=== PATIENT | female | born 1960 | race African-American/Black ===

== ENCOUNTER 2025-03-02 16:34 | Inpatient (IN) | payer OTHER ==
[~2025-03-02] VITALS: Ht 167.6 cm; Wt 74.4 kg
[2025-03-02 17:19] LABS: *BILIRUBIN,URIN NEGATIVE (NEGATIVE); *BLOOD, URINE NEGATIVE (NEGATIVE); *CLARITY,URINE CLEAR (CLEAR); *COLOR,URINE YELLOW (YELLOW); *KETONES,URINE NEGATIVE (NEGATIVE); *PROTEIN,URINE NEGATIVE (NEGATIVE); *UROBILINOGEN,URINE 0.2 E.U./dl (NORMAL); LEUKOCYTE ESTERASE ,URINE NEGATIVE (NEGATIVE); NITRITE, URINE NEGATIVE (NEGATIVE); PH,URINE 5.5 (5.0-8.0)
[2025-03-02 17:20] LABS: HEMOGLOBIN 11.4 g/dL (10.9-14.3); MEAN CORPUSCULAR HEMOGLOBIN 28.1 uug (24.7-32.8); MEAN CORPUSCULAR HGB CONC 33 g/dL (32.3-35.6)
[2025-03-02 17:26] LABS: *AMPHETAMINE, URINE NEGATIVE (NEGATIVE); *BARBITURATE, URINE NEGATIVE (NEGATIVE); *BENZODIAZEPINE, URINE NEGATIVE (NEGATIVE); *CANNABINOID, URINE NEGATIVE (NEGATIVE); *COCCAINE, URINE NEGATIVE (NEGATIVE); *OPIATE, URINE NEGATIVE (NEGATIVE); *PHENCYCLIDINE SCREEN,URINE NEGATIVE (NEGATIVE); FENTANYL, URINE NEGATIVE (NEGATIVE); UGLUCOSE 2+ (NEGATIVE)
[2025-03-02 17:26] LABS: BASOPHILS # (AUTO) 0.1 K/UL (0.0-0.2); BASOPHILS % (AUTO) 0.9 % (0.0-2.0); EOSINOPHILS # (AUTO) 0.2 K/uL (0.0-0.7); EOSINOPHILS % (AUTO) 1.9 % (0.0-7.0); HEMATOCRIT 34.3 % (31.2-41.9); LYMPHOCYTES # (AUTO) 2.8 K/uL (0.8-4.8); LYMPHOCYTES % (AUTO) 29.9 % (20.5-51.5); MEAN CORPUSCULAR VOLUME 84.4 fL (75.5-95.3); MONOCYTES # (AUTO) 0.8 K/uL (0.1-1.30); MONOCYTES % (AUTO) 8.4 % (0.0-11.0); NEUTROPHILS # (AUTO) 5.5 K/uL (1.8-8.9); NEUTROPHILS % (AUTO) 58.9 % (38.5-71.5); PLATELET COUNT (AUTO) 404 K/uL (179-408); RED BLOOD CELL COUNT(AUTO) 4.07 MIL/uL (3.63-4.92); RED CELL DISTRIBUTION WIDTH 13.5 % (12.3-17.7); WHITE BLOOD COUNT (AUTO) 9.3 K/uL (3.8-11.8)
[2025-03-02 17:27] LABS: RBC,URINE 0-3 /HPF (0-3); WBC,URINE 0-3 /HPF (0-3)
[2025-03-02 17:28] LABS: DIFFERENTIAL COMMENT 1
[2025-03-02 17:29] LABS: CARBON DIOXIDE 29 mmol/L (21-32); CHLORIDE 99 mmol/L (98-107); CREATININE 0.7 mg/dL (0.6-1.3); GLUCOSE 266 mg/dL (74-106); POTASSIUM 4.2 mmol/L (3.5-5.1); SODIUM SERUM 138 mmol/L (136-145); UREA NITROGEN, BLOOD 14 mg/dL (7-18)
[2025-03-02 17:33] LABS: ETHANOL < 3 MG/DL (0-10)
[2025-03-02 17:35] LABS: ALANINE AMINOTRANSFERASE 17 U/L (14-59); ALBUMIN 3.8 g/dL (3.4-5.0); ALKALINE PHOSPHATASE 77 U/L (50-136); ASPARTATE AMINOTRANSFERASE 11 U/L (15-37); BILIRUBIN,DIRECT 0.1 mg/dL (0.0-0.2); BILIRUBIN,TOTAL 0.2 mg/dL (0.2-1.0); CREATINE KINASE, TOTAL 62 U/L (26-192); TOTAL PROTEIN, SERUM 7.5 g/dL (6.4-8.2)
[2025-03-02 17:36] LABS: ACETAMINOPHEN < 2.0 ug/mL (10-30)
[2025-03-02 17:43] LABS: THYROID STIMULATING HORMONE 0.573 mIU/mL (0.358-3.740)
[2025-03-02] MEDS ORDERED: INSU100I26 SQ (17:51)
[2025-03-02] MEDS ORDERED: ACET-3117 PO (17:51)
[2025-03-02] MEDS ORDERED: METF-440 PO (17:51)
[2025-03-02] MEDS ORDERED: ASEN10TA9 SL (17:51)
[2025-03-02] MEDS ORDERED: HALOPERIDOL LACTATE 5 MG/1 ML VIAL ONE (22:00)
[2025-03-02] MEDS ORDERED: diphenhydrAMINE 50 MG/1 ML VIAL ONE (22:00)
[2025-03-02] MEDS: HALOPERIDOL LACTATE 5 MG/1 ML VIAL IM ONE (22:07)
[2025-03-02] MEDS: diphenhydrAMINE 50 MG/1 ML VIAL IM ONE (22:07)
[2025-03-02] MEDS ORDERED: INSU100V11 (22:54)
[2025-03-02 23:22] VITALS: BP 158/78; TEMP 98.1; O2SAT 95
[2025-03-02] MEDS ORDERED: LORAZEPAM 1 MG TABLET PO PRN (23:30)
[2025-03-02] MEDS ORDERED: TEMAZEPAM 7.5 MG CAPSULE PO PRN (23:30)
[2025-03-02] MEDS ORDERED: MAGNESIUM HYDROXIDE 30 ML LIQUID UDC PO PRN (23:30)
[2025-03-02] MEDS ORDERED: MAG HYDROX/AL HYDROX/SIMETH 30 ML LIQUID UDC PO PRN (23:30)
[2025-03-03] MEDS ORDERED: BENZOCAINE/MENTH/CETYLPYRD LOZENGE MM PRN
[2025-03-03] MEDS: BLOOD SUGAR DIAGNOSTIC 1 EACH STRIP VI ONE (00:12)
[2025-03-03 08:14] VITALS: BP 148/61; TEMP 98.5; O2SAT 95
[2025-03-03] MEDS ORDERED: DEXTROSE 50% 50 ML DISP.SYRIN IV PRN (09:45)
[2025-03-03] MEDS: BLOOD SUGAR DIAGNOSTIC 1 EACH STRIP VI SCH (11:30)
[2025-03-03] MEDS: INSULIN GLARGINE,HUM 300 UNITS/3 ML CARTRIDGE SQ SCH (12:30)
[2025-03-03 16:44] VITALS: BP 128/75; TEMP 97.8; O2SAT 98
[2025-03-03 20:02] VITALS: BP 132/69; TEMP 98; O2SAT 96
[2025-03-04 15:50] VITALS: BP 134/56; TEMP 98; O2SAT 99
[2025-03-04] MEDS: MUPIROCIN 2% OINT 22 GM TUBE NS SCH (16:00)
[2025-03-04] MEDS: LORAZEPAM 1 MG TABLET PO PRN (16:09)
[2025-03-04] MEDS: HALOPERIDOL LACTATE 5 MG/1 ML VIAL IM ONE (16:24)
[2025-03-04] MEDS: diphenhydrAMINE 50 MG/1 ML VIAL IM ONE (16:25)
[2025-03-04] MEDS: LORAZEPAM 2 MG/1 ML VIAL IM ONE (16:25)
[2025-03-04] MEDS: INSULIN REGULAR, HUMAN 1000 UNIT/10 ML VIAL SQ ONE (20:46)
[2025-03-04] MEDS: MIRTAZAPINE 15 MG TABLET PO SCH (22:16)
[2025-03-04] MEDS: risperiDONE 0.5 MG TABLET PO SCH (22:16)
[2025-03-05] MEDS ORDERED: INSULIN LISPRO 300 UNIT/3 ML VIAL SQ ONE (00:18)
[2025-03-05] MEDS: INSULIN LISPRO 300 UNIT/3 ML VIAL SQ ONE (00:30)
[2025-03-05 07:49] VITALS: BP 117/48; TEMP 98.7; O2SAT 100
[2025-03-05] MEDS: QUETIAPINE FUMARATE 25 MG TABLET PO SCH (08:59)
[2025-03-05] MEDS: INSULIN GLARGINE,HUM 300 UNITS/3 ML CARTRIDGE SQ SCH (09:00)
[2025-03-05] MEDS: INSULIN REGULAR, HUMAN 1000 UNIT/10 ML VIAL SQ PRN (12:17)
[2025-03-05 16:00] VITALS: BP 132/71; TEMP 97.8; O2SAT 100
[2025-03-05 20:00] VITALS: BP 118/68; TEMP 97.6
[2025-03-06] MEDS: INSULIN GLARGINE,HUM 300 UNITS/3 ML CARTRIDGE SQ SCH (17:31)
[2025-03-06] MEDS: INSULIN REGULAR, HUMAN 300 UNITS/3 ML VIAL SQ PRN (20:39)
[2025-03-06 20:40] VITALS: BP 136/66; TEMP 97.9; O2SAT 100
[2025-03-07 07:41] VITALS: BP 120/52; TEMP 97.6; O2SAT 98
[2025-03-07 16:00] VITALS: BP 157/74; TEMP 97.8; O2SAT 97
[2025-03-07 20:00] VITALS: BP 123/69; TEMP 98; O2SAT 100
[2025-03-07] MEDS: TEMAZEPAM 7.5 MG CAPSULE PO PRN (21:04)
[2025-03-08 09:30] VITALS: BP 120/65; TEMP 98.1; O2SAT 99
[2025-03-08 16:50] VITALS: BP 109/79; TEMP 98.1; O2SAT 98
[2025-03-08] MEDS: INSULIN GLARGINE,HUM 300 UNITS/3 ML CARTRIDGE SQ SCH (20:35)
[2025-03-08] MEDS ORDERED: INSULIN GLARGINE,HUM 300 UNITS/3 ML CARTRIDGE SQ ONE (20:54)
[2025-03-08 21:32] VITALS: TEMP 98.5; O2SAT 100
[2025-03-09 08:24] VITALS: BP 138/71; TEMP 98.1; O2SAT 97
[2025-03-09] MEDS: DAPAGLIFLOZIN PROPANEDIOL 10 MG TABLET PO SCH (11:00)
[2025-03-09] MEDS: PIOGLITAZONE HCL 15 MG TABLET PO SCH (11:00)
[2025-03-09] MEDS: METFORMIN XR 500 MG TAB.SR.24H PO SCH (12:12)
[2025-03-09 16:57] VITALS: BP 139/72; TEMP 98.1; O2SAT 97
[2025-03-09 20:02] VITALS: BP 134/70; TEMP 97.8; O2SAT 98
[2025-03-10 08:49] VITALS: BP 144/84; TEMP 98.5; O2SAT 100
[2025-03-10] MEDS: diphenhydrAMINE 50 MG/1 ML VIAL IM STA (15:29)
[2025-03-10] MEDS: HALOPERIDOL LACTATE 5 MG/1 ML VIAL IM STA (15:29)
[2025-03-10] MEDS: LORAZEPAM 2 MG/1 ML VIAL IM STA (15:29)
[2025-03-10 20:00] VITALS: BP 145/80; TEMP 98.2; O2SAT 99
[2025-03-11 08:15] VITALS: BP 105/56; TEMP 98.2; O2SAT 100
[2025-03-11 20:00] VITALS: BP 137/73; TEMP 97.7; O2SAT 100
[2025-03-11] MEDS: INSULIN GLARGINE,HUM 300 UNITS/3 ML CARTRIDGE SQ SCH (20:58)
[2025-03-12 09:20] VITALS: BP 129/66; TEMP 98; O2SAT 98
[2025-03-12] MEDS: ACETAMINOPHEN 325 MG TABLET PO PRN (11:54)
[2025-03-12 15:01] VITALS: BP 115/51; TEMP 98; O2SAT 98
== END 2025-03-12 17:30 | DRG 885 ==
LOC: ER 19:26 → GPS 23:06
PROVIDERS: ADMIT Psychiatry & Neurology Psychiatry; ATTEND Internal Medicine
DX: F33.3 Major depressive disorder, recurrent, severe with psychotic symptoms (principal); E11.65 Type 2 diabetes mellitus with hyperglycemia; G47.00 Insomnia, unspecified; Z79.4 Long term (current) use of insulin; Z79.84 Long term (current) use of oral hypoglycemic drugs; Z79.899 Other long term (current) drug therapy; M21.612 Bunion of left foot; Z91.148 Patient's other noncompliance with medication regimen for other reason; I10 Essential (primary) hypertension; F20.0 Paranoid schizophrenia
CPT/HCPCS: 36415; 70450; 71045; 73620; 84443; 84484; 85025; 85730; G0480; J1200; J1630; J1815; J2060